=== PATIENT | female | born 1970 | race Two or more races ===

== ENCOUNTER 2018-02-11 06:41 | Emergency (ER) | payer OTHER ==
[~2018-02-11] VITALS: Ht 152.4 cm; Wt 45.4 kg
[2018-02-11] MEDS ORDERED: VITAMINS (06:54)
--- NOTE | 2018-02-11 06:55 | NUR ---
Dr. Raji MEJIA MD at bedside for MSE.
[2018-02-11] MEDS ORDERED: IBUPROFEN 600 MG TABLET PO ONE (07:00)
[2018-02-11] MEDS ORDERED: IBUPROFEN 600 MG TABLET ONE (07:02)
--- NOTE | 2018-02-11 07:05 | NUR ---
Urine sample collected, sent to lab. Lab at bedside for blood draw.
--- NOTE | 2018-02-11 07:07 | NUR ---
Xray at bedside.
[2018-02-11 07:11] LABS: BASOPHILS # (AUTO) 0.1 K/uL (0.0-8.0); BASOPHILS % (AUTO) 0.7 % (0.0-2.0); EOSINOPHILS # (AUTO) 0.1 K/uL (0.0-0.7); EOSINOPHILS % (AUTO) 1.2 % (0.0-7.0); HEMATOCRIT 42.5 % (31.2-41.9); HEMOGLOBIN 14.6 g/dL (10.9-14.3); LYMPHOCYTES # (AUTO) 1.9 K/uL (20.0-40.0); LYMPHOCYTES % (AUTO) 24.4 % (20.5-51.5); MEAN CORPUSCULAR HEMOGLOBIN 29.7 uug (24.7-32.8); MEAN CORPUSCULAR HGB CONC 34 g/dL (32.3-35.6); MEAN CORPUSCULAR VOLUME 86.6 fL (75.5-95.3); MONOCYTES # (AUTO) 0.6 K/uL (2.0-10.0); MONOCYTES % (AUTO) 8.2 % (0.0-11.0); NEUTROPHILS # (AUTO) 5.1 K/uL (1.8-8.9); NEUTROPHILS % (AUTO) 65.5 % (38.5-71.5); PLATELET COUNT (AUTO) 370 K/uL (179-408); WHITE BLOOD COUNT (AUTO) 7.8 K/uL (3.8-11.8)
[2018-02-11 07:12] LABS: *BILIRUBIN,URIN NEGATIVE (NEGATIVE); *BLOOD, URINE 1+ (NEGATIVE); *CLARITY,URINE CLEAR (CLEAR); *COLOR,URINE YELLOW (YELLOW); *KETONES,URINE NEGATIVE (NEGATIVE); *PROTEIN,URINE NEGATIVE (NEGATIVE); *UROBILINOGEN,URINE 0.2 E.U./dl (NORMAL); LEUKOCYTE ESTERASE ,URINE NEGATIVE (NEGATIVE); NITRITE, URINE NEGATIVE (NEGATIVE); PH,URINE 5.5 (5.0-8.0); UGLUCOSE NEGATIVE (NEGATIVE)
[2018-02-11 07:14] LABS: *URINE HCG, QUAL NEGATIVE (NEGATIVE)
[2018-02-11 07:15] LABS: BACTERIA,URINE FEW /HPF (NONE SEEN); MUCUS,URINE FEW /LPF (0-FEW); SQUAMOUS EPITHELIAL CELL,UR FEW /HPF (NONE SEEN); WBC,URINE 0-3 /HPF (0-3)
[2018-02-11 07:19] LABS: CREATININE 0.7 mg/dL (0.6-1.3); POTASSIUM 4.2 mmol/L (3.5-5.1)
[2018-02-11 07:25] LABS: BILIRUBIN,DIRECT 0.3 mg/dL (0.0-0.2); TOTAL PROTEIN, SERUM 8.3 g/dL (6.4-8.2)
--- NOTE | 2018-02-11 09:16 | NUR ---
mse completed, pt d/c'd home, aci/copies of all tests given. pt ambulated w/o diff/took all belongings.
[2018-02-11 09:19] VITALS: BP 111/77
== END 2018-02-11 08:55 | disposition home or self-care (01) ==
LOC: ER 06:50
DX: R31.29 Other microscopic hematuria (principal); R07.89 Other chest pain
CPT/HCPCS: 36415; 71045; 83690; 84703; 85025; A4663